=== PATIENT | female | born 1940 | race Caucasian/White ===

== ENCOUNTER 2016-09-09 05:35 | Outpatient (CLI) | payer MEDICARE ==
[~2016-09-09] VITALS: Ht 152.4 cm; Wt 58.1 kg
[~2016-09-09 05:35] MED LIST: ALLERGY SHOTS; AMIT25TA9 PO; AMIT50TA3 PO; ASP81CT PO; ASPI-875 PO; CHOL100011 PO; DOCU100T7 PO; FENO145T2 PO; FOLI-74 PO; HCT25T PO; LEVO125T6 PO; LOSA1TAB20 PO; MECL25TA56 PO; MULT-166 PO; OMEP20CA6 PO; ONDA4TAB11 PO; SLOW-MAG64 M1 PO; TRM50T PO
[2016-09-09] MEDS ORDERED: CHOL200059 PO (13:34)
[2016-09-09] MEDS ORDERED: FENO134C PO (13:34)
[2016-09-09] MEDS ORDERED: LEVO150T6 PO (13:34)
[2016-09-09] MEDS ORDERED: FEXO180T84 PO (13:35)
== END 2016-09-09 13:37 ==
LOC: PREOP 05:35
PROVIDERS: ATTEND Internal Medicine
DX: Z01.818 Encounter for other preprocedural examination (principal); Z12.11 Encounter for screening for malignant neoplasm of colon

== ENCOUNTER 2016-09-11 07:16 | Day surgery (SDC) | payer MEDICARE ==
[~2016-09-11] VITALS: Ht 152.4 cm; Wt 58.1 kg
[~2016-09-11 07:16] MED LIST changes: +CHOL200059 PO; +FENO134C PO; +FEXO180T84 PO; +LEVO150T6 PO
[2016-09-11] MEDS ORDERED: 1/2 NS IV SOLUTION 1,000 ML IV STA (07:26)
[2016-09-11] MEDS ORDERED: NALOXONE 0.4 MG/ML 1 ML (NARCAN) VIAL IVP PRN (07:30)
[2016-09-11] MEDS ORDERED: FLUMAZENIL (ROMAZICON) 0.1 MG/ML 5 ML VIAL INJ PRN (07:30)
[2016-09-11] MEDS ORDERED: LIDOCAINE JELLY 2% (XYLOCAINE) 5 ML TUBE TOP ONE (07:45)
[2016-09-11 07:56] VITALS: BP 139/62
--- NOTE | 2016-09-11 08:05 | Pre-Op Note & Conscious Sedat ---
Pre-Operative Progress Note H&P Reviewed The H&P was reviewed, patient examined and no changes noted. Date H&P Reviewed: Sep 11, 2016 Time H&P Reviewed: 08:05 Conscious Sedation Pre-Proced ASA Class: 2 Airway Mallampati Classification: ([place] appropriate class) I. II. III, IV Lungs Heart ASA score ASA 1: a normal healthy patient ASA 2: a patient with a mild systemic disease (mid diabetes, controlled hypertension, obesity ASA 3: a patient with a severe systemic disease that limits activity (angina , COPD, prior Myocardial infarction) ASA 4: a patient with an incapacitating disease that is a constant threat to life (CHF, renal failure) ASA 5: a moribund patient not expected to survive 24 hrs. (ruptured aneurysm) ASA 6: a declared brain patient whose organs are being harvested. For emergent operations, add the letter E after the classification Grade 2 Sedation Plan: Analgesia, Amnesia, Plan communicated to team members, Discussed options with patient/fam, Discussed risks with patient/fam Note The patient is an appropriate candidate to undergo the planned procedure, sedation, and anesthesia. The patient immediately re-assessed prior to indication. KAM GARCIA MD Sep 11, 2016 08:05
[2016-09-11] MEDS ORDERED: MIDAZOLAM 2 MG/2 ML (VERSED) VIAL ONE ×3 (08:17→08:18)
[2016-09-11] MEDS ORDERED: LIDOCAINE JELLY 2% (XYLOCAINE) 5 ML TUBE ONE (08:17)
[2016-09-11] MEDS ORDERED: fentaNYL INJECTION 100 MCG/2 ML AMP ONE ×2 (08:17→09:24)
[2016-09-11] MEDS: fentaNYL INJECTION 100 MCG/2 ML AMP IVP PRN ×3 (09:10→09:20)
[2016-09-11] MEDS: MIDAZOLAM 2 MG/2 ML (VERSED) VIAL IVP PRN ×2 (09:12→09:15)
[2016-09-11 10:00] VITALS: BP 106/62
[2016-09-11 10:30] VITALS: BP 111/63
[2016-09-11 10:40] VITALS: BP 111/63
--- NOTE | 2016-09-14 08:44 | OPERATIVE REPORT ---
PROCEDURE PHYSICIAN: KAM GARCIA DATE OF PROCEDURE: 09/11/2016 PROCEDURE: The patient was placed in left lateral decubitus position. Prior to undergoing colonoscopy, digital rectal evaluation was performed. Anal sphincter tone was normal and the perianal reflex was intact. No abnormalities were noted to digital inspection of the anal canal or distal rectal vault. The colonoscope was inserted in the rectum and under direct visualization, advanced to the cecum. The cecum was identified by identification of the ileocecal valve and cecal strap. Photographic documentation was obtained. Careful inspection was made as the colonoscope was withdrawn. FINDINGS: There was no evidence for internal or external hemorrhoids and the rectum was unremarkable. The sigmoid colon revealed several small to medium sized diverticulum without evidence for diverticulitis. No other sigmoid colonic abnormalities were appreciated. The descending colon, splenic flexure, transverse colon and hepatic flexure were unremarkable. There was a small focal colonic ulceration, shallow and benign in appearance, measuring about 6 x 7 mm in size. It was whitish coloration with some surrounding erythema. A biopsy was obtained and submitted for histopathology. The remainder of the ascending colon and cecum were unremarkable. The ileocecal valve was unremarkable as well. ASSESSMENT: One benign appearing focal colonic ulceration was noted in the distal ascending colon. It was biopsied and submitted for histopathology. The patient was getting a diarrheal type illness with a lot of abdominal cramping for the most part which had resolved. As long as the histopathology unremarkable, we will not be recommending future screening colonoscopy considering the patient's age. Job ID: [id number] Dictated Date: 09/11/2016 16:44:09 Carboy Filler Date: 09/14/2016 08:39:46 / esther
--- NOTE | 2016-09-16 09:02 | HISTORY AND PHYSICAL ---
DICTATING PHYSICIAN: Dr. Camacho DATE OF ADMISSION: 09/11/2016 INDICATION FOR THE PROCEDURE: Screening colon. Shelbi was seen in the office on 08/17 for follow-up of diabetes. She reports that she had been doing well but 5 days prior on Wednesday night she developed severe abdominal pain with bloating and gas. She states it followed eating a handful of peanuts. This is not, however, unusual for her and she does not have a known nut allergy. She felt bloated. She did pass some gas. Her bowels did not move until Wednesday and this was only after she took some stimulant laxative and MiraLAX. She had poor appetite without, chills or fever and felt fatigued. She was beginning to get her appetite back. Review of her office notes she was due for a screening colonoscopy anyway. She had undergone colonoscopy in 2004. There is a family history for colon cancer in her grandmother. In 2004 she had a lot of haustral hypertrophy and spasm felt to be possibly obscuring some sigmoid diverticulum. No polyps were identified on that colonoscopy and there was not overt evidence for acute diverticulitis. No other significant abnormalities were noted at that time. Shlebi has had no past abdominal surgery. PAST MEDICAL HISTORY: 1. Significant for hypertension. 2. Type 2 diabetes mellitus that have been under good control. Her last A1c was in June and was 6.7 with a fasting sugar of 129. SOCIAL HISTORY: She is retired with no past smoking or drinking history. PHYSICAL EXAMINATION: Revealed one anxious appearing white female otherwise in no acute distress. VITAL SIGNS: Weight 127 pounds is stable. Blood pressure 138/64. HEENT EXAMINATION: Unremarkable. There is no evidence for pallor or scleral icterus. NECK: Revealed no JVD, adenopathy or bruits. She is in a Mallampati class II oropharyngeal configuration. CHEST: Clear. CV: Revealed a regular rate and rhythm without murmur, S3 or S4. She has some generalized abdominal discomfort without rebound or guarding. No evidence for distention was noted. Bowel sounds were present. No mass or organomegaly was noted. EXTREMITIES: Reveal no cyanosis, clubbing, or edema. ASSESSMENT: Possible gastroenteritis. The patient is set-up for overdue screening colonoscopy on the . A CMP and a CBC were sent off and she is scheduled to return in 4 months with a BMP and an A1c. Prep instructions with split dose Colyte were given and questions were answered. I discussed the fact that a nut allergy was highly unlikely as she commonly eats all forms of nuts without any usual symptoms to suggest food allergy. Job ID: [id number] Dictated Date: 08/17/2016 16:18:00 Client Consultant Date: 08/18/2016 09:30:59/merritt
--- OUTSIDE RECORDS SUMMARY | 2016-10-04 07:47 | XMS REPORT | Continuity of Care Document ---
Author Author [facility] Organization [facility] Address Unknown Phone Unavailable Allergies Active Description Code Type Severity Reaction Onset Reported/Identified Relationship to Patient Clinical Status Yes codeine [id number] Drug Allergy Unknown N/A 12/21/2013 Medications Problems Date Dx Coded Attending Type Code Diagnosis Diagnosed By 08/22/2010 Ot 386.30 08/22/2010 Ot 780.4 01/05/2012 Ot 276.51 DEHYDRATION 01/05/2012 Ot 787.01 NAUSEA WITH VOMITING 01/05/2012 Ot 787.91 DIARRHEA 11/24/2012 ALYSE MATTHEW, TONY Nielsen Ot 706.2 SEBACEOUS CYST 11/24/2012 ALYSE MATTHEW, TONY Nielsen Ot V58.69 OT MED,LT,CURRENT USE 08/19/2013 GABRIELA MATTHEW, IRVIN English Ot 787.01 NAUSEA WITH VOMITING 08/19/2013 IRVIN OCHOA MD Ot 787.91 DIARRHEA 04/04/2015 RADHA MATTHEW, KAM English Ot Z12.31 04/04/2015 RADHA MATTHEW, KAM English Ot Z12.31 04/24/2015 KAM GARCIA MD Ot Z12.31 05/15/2015 Ot 787.02 05/15/2015 Ot 789.01 05/15/2015 Ot 553.3 05/15/2015 Ot 787.02 05/15/2015 Ot 787.20 05/15/2015 Ot 789.01 05/15/2015 ALYSE MATTHEW, TONY Nielsen Ot 709.9 05/15/2015 ALYSE MATTHEW, TONY Nielsen Ot V72.63 05/15/2015 ALYSE MATTHEW, TONY Nielsen Ot V74.8 05/15/2015 KAM GARCIA MD Ot V76.12 05/15/2015 RADHA MATTHEW, KAM English Ot V76.12 05/15/2015 KAM GARCIA MD Ot Z12.31 07/15/2015 KAM GARCIA MD Ot M54.16 07/15/2015 RADHA MATTHEW, KAM English Ot M77.11 08/15/2015 RADHA MATTHEW, KAM English Ot M54.16 RADICULOPATHY, LUMBAR REGION 08/15/2015 RADHA MATTHEW, KAM English Ot M77.11 LATERAL EPICONDYLITIS, RIGHT ELBOW 10/16/2015 RADHA MATTHEW, KAM English Ot M54.16 RADICULOPATHY, LUMBAR REGION 10/16/2015 RADHA MATTHEW, KAM English Ot M77.11 LATERAL EPICONDYLITIS, RIGHT ELBOW 03/05/2016 Ot 787.02 NAUSEA ALONE 03/05/2016 Ot 789.01 ABDOMINAL PAIN, RIGHT UPPER QUADRANT 03/05/2016 Ot 553.3 DIAPHRAGMATIC HERNIA 03/05/2016 Ot 787.02 NAUSEA ALONE 03/05/2016 Ot 787.20 DYSPHAGIA, UNSPECIFIED 03/05/2016 Ot 789.01 ABDOMINAL PAIN, RIGHT UPPER QUADRANT 03/05/2016 ALYSE MATTHEW, TONY Nielsen Ot 709.9 SKIN DISORDER NOS 03/05/2016 ALYSE MATTHEW, TONY Nielsen Ot V72.63 PRE-PROCEDURAL LABORATORY EXAMINATION 03/05/2016 ALYSE MATTHEW, TONY Nielsen Ot V74.8 SCREEN-BACTERIAL DIS NEC 03/05/2016 RADHA MATTHEW, KAM English Ot V76.12 OTH SCREEN MAMMO-MALIGN NEOPLASM OF TIFFANY 03/05/2016 RADHA MATTHEW, KAM English Ot V76.12 OTH SCREEN MAMMO-MALIGN NEOPLASM OF TIFFANY 03/05/2016 RADHA MATTHEW, KAM English Ot Z12.31 ENCNTR SCREEN MAMMOGRAM FOR MALIGNANT NE 03/06/2016 RADHA MATTHEW, KAM English Ot R05 COUGH 03/06/2016 RADHA MATTHEW, KAM English Ot R49.0 DYSPHONIA 03/10/2016 RADHA MATTHEW, KAM English Ot R05 COUGH 03/10/2016 RADHA MATTHEW, KAM English Ot R49.0 DYSPHONIA 03/11/2016 RADHA MATTHEW, KAM English Ot R05 COUGH 03/11/2016 RADHA MATTHEW, KAM English Ot R49.0 DYSPHONIA 03/26/2016 RADHA MATTHEW, KAM English Ot R05 COUGH 03/26/2016 RADHA MATTHEW, KAM English Ot R49.0 DYSPHONIA 04/02/2016 RADHA MATTHEW, KAM English Ot R05 COUGH 04/02/2016 RADHA MATTHEW, KAM English Ot R49.0 DYSPHONIA 04/16/2016 Ot 787.02 NAUSEA ALONE 04/16/2016 Ot 789.01 ABDOMINAL PAIN, RIGHT UPPER QUADRANT 04/16/2016 Ot 553.3 DIAPHRAGMATIC HERNIA 04/16/2016 Ot 787.02 NAUSEA ALONE 04/16/2016 Ot 787.20 DYSPHAGIA, UNSPECIFIED 04/16/2016 Ot 789.01 ABDOMINAL PAIN, RIGHT UPPER QUADRANT 04/16/2016 ALYSE MATTHEW, TONY Nielsen Ot 709.9 SKIN DISORDER NOS 04/16/2016 ALYSE MATTHEW, TONY Nielsen Ot V72.63 PRE-PROCEDURAL LABORATORY EXAMINATION 04/16/2016 ALYSE MATTHEW, TONY Nielsen Ot V74.8 SCREEN-BACTERIAL DIS NEC 04/16/2016 RADHA MATTHEW, KAM English Ot V76.12 OTH SCREEN MAMMO-MALIGN NEOPLASM OF [place]FF[place] 04/16/2016 KAM GARCIA MD Ot V76.12 OTH SCREEN MAMMO-MALIGN NEOPLASM OF TIFFANY 04/16/2016 KAM GARCIA MD Ot Z12.31 ENCNTR SCREEN MAMMOGRAM FOR MALIGNANT NE 04/16/2016 KAM GARCIA MD Ot R05 COUGH 04/16/2016 KAM GARCIA MD Ot R49.0 DYSPHONIA 04/16/2016 KAM GARCIA MD Ot Z12.31 ENCNTR SCREEN MAMMOGRAM FOR MALIGNANT NE 04/17/2016 KAM GARCIA MD Ot Z12.31 ENCNTR SCREEN MAMMOGRAM FOR MALIGNANT NE 04/27/2016 KAM GARCIA MD Ot Z12.31 ENCNTR SCREEN MAMMOGRAM FOR MALIGNANT NE 09/09/2016 KAM GARCIA MD Ot Z01.818 ENCOUNTER FOR OTHER PREPROCEDURAL EXAMIN 09/09/2016 KAM GARCIA MD Ot Z12.11 ENCOUNTER FOR SCREENING FOR MALIGNANT NE 09/11/2016 KAM GARCIA MD Ot K57.30 DVRTCLOS OF LG INT W/O PERFORATION OR AB 09/11/2016 KAM GARCIA MD Ot K63.3 ULCER OF INTESTINE 09/11/2016 KAM GARCIA MD Ot Z12.11 ENCOUNTER FOR SCREENING FOR MALIGNANT NE 09/15/2016 KAM GARCIA MD Ot K57.30 DVRTCLOS OF LG INT W/O PERFORATION OR AB 09/15/2016 KAM GARCIA MD Ot K63.3 ULCER OF INTESTINE 09/15/2016 KAM GARCIA MD Ot Z12.11 ENCOUNTER FOR SCREENING FOR MALIGNANT NE Procedures Results Encounters ACCT No. Visit Date/Time Discharge Status Pt. Type Provider Facility Loc./Unit Complaint [id number] 09/11/2016 07:16:00 2016 10:40:00 DIS Outpatient KAM GARCIA MD [facility] ENDO SCREENING [id number] 09/09/2016 05:35:00 2016 13:37:00 DIS Outpatient KAM GARCIA MD [facility] PREOP SCREENING [id number] 08/02/2015 13:45:00 2015 00:01:00 DIS Outpatient KAM GARCIA MD [facility] REHAB L LUMBAR RADICULOPATHY;R ELBOW EPICONDYLITIS [id number] 04/02/2015 10:05:00 2014 23:59:59 CLS Outpatient KAM GARCIA MD [facility] RAD SCREENING [id number] 02/19/2014 10:29:00 2013 23:59:59 CLS Outpatient KAM GARCIA MD [facility] RAD ROUTINE [id number] 08/19/2013 12:51:00 2013 15:46:00 DIS Emergency IRVIN OCHOA MD [facility] ER DEHYDRATION VOMITING [id number] 01/23/2013 08:57:00 2012 23:59:59 CLS Outpatient KAM GARCIA MD [facility] RAD ROUTINE [id number] 11/24/2012 06:40:00 2012 13:00:00 DIS Outpatient TONY CULLEN MD [facility] SDC SKIN LESION [id number] 11/17/2012 08:27:00 2012 23:59:59 CLS Outpatient TONY CULLEN MD [facility] PREOP SKIN LESION [id number] 04/16/2016 10:49:00 ACT Outpatient KAM GARCIA MD [facility] RAD SCREENING [id number] 03/05/2016 09:56:00 ACT Outpatient KAM GARCIA MD [facility] RAD CHRONIC COUGH [id number] 08/16/2015 00:08:00 PEN Preadmit KAM GARCIA MD [facility] REHAB [id number] 01/05/2012 18:57:00 Document Registration [id number] 07/14/2011 06:04:00 Document Registration [id number] 07/13/2011 07:58:00 Document Registration [id number] 08/22/2010 16:52:00 Document Registration
== END 2016-09-11 10:40 | disposition home or self-care (01) ==
LOC: DELPENDDIS → ENDO 07:16
PROVIDERS: ATTEND Internal Medicine
DX: Z12.11 Encounter for screening for malignant neoplasm of colon (principal); K63.3 Ulcer of intestine; K57.30 Diverticulosis of large intestine without perforation or abscess without bleeding
CPT/HCPCS: 88305

== ENCOUNTER → 2017-06-01 | Outpatient (CLI) | payer MEDICARE ==
--- NOTE | 2017-06-01 17:22 | Diagnostic Imaging Report ---
Bilateral screening mammogram 2D views with tomosynthesis The current study was also evaluated with a Computer Aided Detection (CAD) system. Indication: Screening. No current complaints stated on the questionnaire. COMPARISON: 04/16/2016 Findings: The breasts are composed of suggested dense parenchyma which may decrease mammographic sensitivity. Scattered benign-appearing calcifications are seen. Allowing for technique and positional differences, no suspicious change is seen. IMPRESSION: Dense breasts with no definite change. ACR BI-RADS Category 2: Benign findings. Result letter will be mailed to the patient. Note: At least 10% of breast cancer is not imaged by mammography. Dictated by: Dictated on workstation # [id number]
== END ==
LOC: RAD 13:16
PROVIDERS: ATTEND Internal Medicine
DX: Z12.31 Encounter for screening mammogram for malignant neoplasm of breast (principal)
CPT/HCPCS: 77067

== ENCOUNTER → 2017-06-03 | Outpatient (CLI) | payer MEDICARE ==
[2017-06-04 03:03] LABS: IGE DETAIL 72.5 IU/mL
[2017-06-04 06:36] LABS: INT IGE See Footnote
[2017-06-04 06:39] LABS: DUST MITE CL CLASS 3; DUST MITE RAST 5.55 H kU/L (<0.35)
[2017-06-04 06:40] LABS: ELM TREE <0.35 kU/L (<0.35); ELM TREE CL CLASS 0; KENT BLUE CL CLASS 0; KENTUCKY BLUE GRASS RAST <0.35 kU/L (<0.35); OAK TREE <0.35 kU/L (<0.35); OAK TREE CL CLASS 0; PECAN TR CL CLASS 0
[2017-06-04 06:41] LABS: ALT TEN CL CLASS 0; BERMUDA CL CLASS 0; BERMUDA GRASS RAST <0.35 kU/L (<0.35); CAT DANDER CL CLASS 0; CAT DANDER RAST <0.35 kU/L (<0.35); CLADOSPORIUM CL CLASS 0; CLADOSPORIUM MOLD RAST <0.35 kU/L (<0.35); DOG DANDER CL CLASS 0; DOG DANDER RAST <0.35 kU/L (<0.35); JOHNSON GR CL CLASS 0; JOHNSON GRASS RAST <0.35 kU/L (<0.35); MARSH ELDER RAST <0.35 kU/L (<0.35); RAGWEED CL CLASS 0; RAGWEED RAST <0.35 kU/L (<0.35); ROUGH MARSH CL CLASS 0
[2017-06-04 06:42] LABS: ALLERGEN INTERP SEE FOOTNOTE
== END ==
LOC: LAB 11:34
PROVIDERS: ATTEND Nurse Practitioner Family
DX: R05 Cough (principal); R06.00 Dyspnea, unspecified
CPT/HCPCS: 36415; 82785; 86003

== ENCOUNTER → 2017-06-18 | Outpatient (CLI) | payer MEDICARE ==
--- NOTE | 2017-06-18 13:16 | Diagnostic Imaging Report ---
PROCEDURE: CT chest without contrast. TECHNIQUE: Multiple contiguous axial images were obtained through the chest without the use of intravenous contrast. INDICATION: Chronic cough. FINDINGS: The lungs are well aerated. There are no infiltrates present. No masses are demonstrated. No interstitial lung disease is demonstrated. No bronchiectasis or bullous emphysematous changes are present. The aorta is atherosclerotic without evidence of aneurysm. There is no mediastinal or hilar adenopathy of pathologic size. No pleural effusions or pericardial effusions. There is coronary artery calcification. Bone windows show no blastic or lytic lesions. IMPRESSION: 1. Lungs are clear without evidence of emphysematous changes. 2. Rather dense coronary artery calcification. Dictated by: Dictated on workstation # [id number]
== END ==
LOC: RAD 12:49
PROVIDERS: ATTEND Nurse Practitioner Family
DX: I25.10 Atherosclerotic heart disease of native coronary artery without angina pectoris (principal); J30.2 Other seasonal allergic rhinitis; R05 Cough; R06.00 Dyspnea, unspecified
CPT/HCPCS: 71250

== ENCOUNTER → 2018-06-16 | Outpatient (CLI) | payer MEDICARE, OTHER ==
--- NOTE | 2018-06-16 09:24 | Diagnostic Imaging Report ---
INDICATION: Screening for osteoporosis COMPARISON: None FINDINGS: AP Spine L1-L4: [BMD (g/cm2): 1.135] [T-Score: -0.5] [Z-Score: 1.5] [BMD Previous: na] [BMD % Change: na] LT Hip Neck: [BMD (g/cm2): .924] [T-Score: -0.8] [Z-Score: 1.4] LT Hip Total: [BMD (g/cm2):1.007] [T-Score:0.0] [Z-Score: 2.1] [BMD Previous: na] [BMD % Change: na] RT Hip Neck: [BMD (g/cm2):0.905] [T-Score:-1.0] [Z-Score:1.3] RT Hip Total: [BMD (g/cm2):1.019] [T-score:0.1] [Z-Score:2.2] [BMD Previous:na] [BMD % Change:na] *Indicates significant change from prior examination based on 95% confidence level. World Health Organization criteria for BMD interpretation classify patients as Normal (T-score at or above -1.0), Osteopenic (T-score between -1.0 and -2.5) or Osteoporotic (T-score at or below -2.5). LIMITATIONS AND MODIFICATION: None. FRACTURE RISK (FRAX SCORE): The ten year probability of (%): Major Osteoporotic Fracture: [ ] Hip Fracture: [ ] IMPRESSION: 1. The bone mineral density of the hips and spine is within normal limits. 2. Clinical followup is recommended. 3. See below National Osteoporosis Foundation guidelines on when to potentially initiate pharmacologic therapy. Based on the National Osteoporosis Foundation Guidelines, pharmacologic treatment should be initiated in any of the following, unless clinical conditions suggest otherwise: * Any patient with prior fragility fracture of the hip or vertebrae. A spine fracture indicates 5X risk for subsequent spine fracture and 2X risk for subsequent hip fracture. * Osteoporosis (T-score <-2.5). * Postmenopausal women and men age 50 and older with low bone mass/osteopenia (T-score between -1.0 and -2.5) by DXA and 10-year major osteoporotic fracture greater than 20% or a 10-year probability of hip fracture greater than 3%. These fracture risks are supplied above in the FRAX score, if applicable. * Clinician judgement and/or patient preferences may indicate treatment for people with 10-year fracture probabilities above or below these levels. Dictated by: Dictated on workstation # [id number]
== END ==
LOC: RAD 08:04
PROVIDERS: ATTEND Nurse Practitioner
DX: Z13.820 Encounter for screening for osteoporosis (principal); Z78.0 Asymptomatic menopausal state
CPT/HCPCS: 77080

== ENCOUNTER → 2018-06-29 | Outpatient (CLI) | payer MEDICARE, OTHER ==
--- NOTE | 2018-06-29 19:14 | Diagnostic Imaging Report ---
INDICATION: Routine screening. Comparison is made with prior mammogram from 06/01/2017 and 04/16/2016. 2-D and 3-D bilateral screening mammography was performed with a Computer Aided Detection (CAD) system. FINDINGS: Both breasts are heterogeneously dense, limiting the sensitivity of mammography. The parenchymal pattern is stable. No mass or malignant appearing microcalcifications are seen. The axillae are unremarkable. IMPRESSION: No mammographic features suspicious for malignancy are identified. ACR BI-RADS Category 1: Negative. Result letter will be mailed to the patient. Note: At least 10% of breast cancer is not imaged by mammography. Dictated by: Dictated on workstation # [id number]
== END ==
LOC: RAD 14:45
PROVIDERS: ATTEND Internal Medicine
DX: Z12.31 Encounter for screening mammogram for malignant neoplasm of breast (principal)
CPT/HCPCS: 77067

== ENCOUNTER → 2019-07-10 | Outpatient (CLI) | payer MEDICARE, OTHER ==
--- NOTE | 2019-07-11 12:30 | Diagnostic Imaging Report ---
INDICATION: Routine screening. COMPARISON: Comparison is made with prior mammograms from 06/29/2018 and 06/01/2017. 2-D and 3-D bilateral screening mammography was performed. The current study was also evaluated with a Computer Aided Detection (CAD) system. 3-D tomosynthesis was also performed and reviewed. FINDINGS: Both breasts remain heterogeneously dense, limiting the sensitivity of mammography. There are benign calcifications bilaterally. No mass or malignant-appearing microcalcifications are seen. Axillae are unremarkable. IMPRESSION: No mammographic features suspicious for malignancy are identified. ACR BI-RADS Category 2: Benign findings. Result letter will be mailed to the patient. Note: At least 10% of breast cancer is not imaged by mammography. Dictated by: Dictated on workstation # [id number]
== END ==
LOC: RAD 14:38
PROVIDERS: ATTEND Internal Medicine
DX: Z12.31 Encounter for screening mammogram for malignant neoplasm of breast (principal)
CPT/HCPCS: 77067

== ENCOUNTER → 2020-07-11 | Outpatient (CLI) | payer MEDICARE, OTHER ==
--- NOTE | 2020-07-11 14:27 | Diagnostic Imaging Report ---
INDICATION: Routine screening. Comparison is made to prior mammogram 07/10/2019 and 06/29/2018. 2-D and 3-D bilateral screening mammography was performed with CAD. Both breasts are heterogeneously dense, limiting the sensitivity of mammography. There are benign calcifications. No mass or malignant appearing microcalcifications are seen. Axillae are unremarkable. IMPRESSION: BI-RADS Category 2 No mammographic features suspicious for malignancy are identified. ACR BI-RADS Category 2: Benign findings. Result letter will be mailed to the patient. Note: At least 10% of breast cancer is not imaged by mammography. Dictated by: Dictated on workstation # [id number]
== END ==
LOC: RAD 10:18
PROVIDERS: ATTEND Internal Medicine
DX: Z12.31 Encounter for screening mammogram for malignant neoplasm of breast (principal)
CPT/HCPCS: 77063; 77067

== ENCOUNTER → 2020-12-10 | Outpatient (CLI) | payer MEDICARE, OTHER ==
--- NOTE | 2020-12-10 16:23 | Diagnostic Imaging Report ---
INDICATION: Postmenopausal state/ COMPARISON: 06/16/2018 FINDINGS: AP Spine L1-L4: [BMD (g/cm2): 1.029] [T-Score: -1.4] [Z-Score: 0.7] [BMD Previous: 1.135] [BMD % Change: -9.3] LT Hip Neck: [BMD (g/cm2): 0.897] [T-Score: -1.0] [Z-Score: 1.3] LT Hip Total: [BMD (g/cm2):1.026] [T-Score:0.1] [Z-Score: 2.4] [BMD Previous: 1.007] [BMD % Change: 1.9] RT Hip Neck: [BMD (g/cm2):0.880] [T-Score:-1.1] [Z-Score:1.2] RT Hip Total: [BMD (g/cm2):0.994] [T-score:-0.1] [Z-Score:2.0] [BMD Previous:1.019] [BMD % Change:-2.5] *Indicates significant change from prior examination based on 95% confidence level. World Health Organization criteria for BMD interpretation classify patients as Normal (T-score at or above -1.0), Osteopenic (T-score between -1.0 and -2.5) or Osteoporotic (T-score at or below -2.5). LIMITATIONS AND MODIFICATION: None. FRACTURE RISK (FRAX SCORE): The ten year probability of (%): Major Osteoporotic Fracture: [12.1] Hip Fracture: [2.5] IMPRESSION: 1. Osteopenia (Low bone mass). 2. No significant change in bone mineral density since prior examination. 3. See below National Osteoporosis Foundation guidelines on when to potentially initiate pharmacologic therapy. Based on the National Osteoporosis Foundation Guidelines, pharmacologic treatment should be initiated in any of the following, unless clinical conditions suggest otherwise: * Any patient with prior fragility fracture of the hip or vertebrae. A spine fracture indicates 5X risk for subsequent spine fracture and 2X risk for subsequent hip fracture. * Osteoporosis (T-score <-2.5). * Postmenopausal women and men age 50 and older with low bone mass/osteopenia (T-score between -1.0 and -2.5) by DXA and 10-year major osteoporotic fracture greater than 20% or a 10-year probability of hip fracture greater than 3%. These fracture risks are supplied above in the FRAX score, if applicable. * Clinician judgement and/or patient preferences may indicate treatment for people with 10-year fracture probabilities above or below these levels. Dictated by: Dictated on workstation # [id number]
== END ==
LOC: RAD 11:00
PROVIDERS: ATTEND Nurse Practitioner
DX: M85.88 Other specified disorders of bone density and structure, other site (principal); Z78.0 Asymptomatic menopausal state
CPT/HCPCS: 77080

== ENCOUNTER → 2021-02-04 | Outpatient (CLI) | payer MEDICARE, OTHER | LOC: LABNPT 06:30 | PROVIDERS: ATTEND Internal Medicine | DX: E11.59 Type 2 diabetes mellitus with other circulatory complications (principal); Z20.822 Contact with and (suspected) exposure to COVID-19 | CPT/HCPCS: 87636 ==

== ENCOUNTER 2021-02-06 06:27 | Outpatient (CLI) | payer MEDICARE, OTHER ==
[~2021-02-06] VITALS: Ht 152.4 cm; Wt 56.8 kg
== END 2021-02-06 11:51 ==
LOC: PREOP 06:27
PROVIDERS: ATTEND Internal Medicine
DX: Z01.818 Encounter for other preprocedural examination (principal)

== ENCOUNTER 2021-02-14 07:02 | Day surgery (SDC) | payer MEDICARE, OTHER ==
--- NOTE | 2021-02-06 06:04 | HISTORY AND PHYSICAL ---
DATE OF SERVICE: COLONOSCOPY HISTORY AND PHYSICAL DATE OF ADMISSION: 02/14/2021. HISTORY OF PRESENT ILLNESS: The patient is a very spry 80-year-old white female undergoing diagnostic colonoscopy due to positive Cologuard. She denies any bowel habit changes, noted no melena or bright red blood per rectum. There has been no change in weight and she denies abdominal pain. She is not aware of any family history for colon cancer. PAST MEDICAL HISTORY: Significant for type 2 diabetes mellitus that she controls with diet. Her last colonoscopy was 16 years ago with no evidence for neoplasia. PHYSICAL EXAMINATION: GENERAL: Reveals a white female, who appeared to be in no acute distress. HEENT: Unremarkable. Sclerae nonicteric. No evidence for pallor. CHEST: Clear. CARDIOVASCULAR: Regular rate and rhythm without murmur, S3 or S4. ABDOMEN: Soft, supple without mass or organomegaly. She has some mild right upper quadrant discomfort to palpation as well as right lower quadrant without rebound or guarding. No mass or organomegaly noted. No bruits noted. Bowel sounds positive. No evidence for distention. EXTREMITIES: Reveal no cyanosis, clubbing or edema. ASSESSMENT AND PLAN: Discussed the ramifications of a positive Cologuard with the patient and she is being set up for surveillance for diagnostic colonoscopy on 02/14/2021. Prep instructions with Morgan-tab were given and questions were answered. Job ID: [id number] DocumentID: [id number] Dictated Date: 01/29/2021 16:46:02 Inspector Elevators Date: 01/29/2021 17:11:37 Dictated By: KAM GARCIA MD
[~2021-02-14] VITALS: Ht 152.4 cm; Wt 56.8 kg
[2021-02-14] MEDS ORDERED: GLYCOPYRROLATE 0.2 MG/ML (ROBINUL) 2 ML VIAL IJ ONE (07:03)
[2021-02-14] MEDS ORDERED: LACTATED RINGERS 1,000 ML IV STA (07:14)
[2021-02-14] MEDS ORDERED: LIDOCAINE JELLY 2% 6 ML SYRINGE MM PRN (07:15)
[2021-02-14 07:28] VITALS: BP 157/60
[2021-02-14] MEDS ORDERED: PROPOFOL INJECTION 50 ML IV ONE (08:02)
--- NOTE | 2021-02-14 08:04 | Pre-Op Note & Conscious Sedat ---
Pre-Operative Progress Note H&P Reviewed The H&P was reviewed, patient examined and no changes noted. Date H&P Reviewed: Feb 14, 2021 Time H&P Reviewed: 07:45 Conscious Sedation Pre-Proced ASA Score 2 For ASA 3 and 4: Consider anesthesia and medical clearance. Also, for patients with a history of failed moderate sedation consider anesthesia. Airway Lungs Heart ASA score ASA 1: a normal healthy patient ASA 2: a patient with a mild systemic disease (mid diabetes, controlled hypertension, obesity ASA 3: a patient with a severe systemic disease that limits activity (angina, COPD, prior Myocardial infarction) ASA 4: a patient with an incapacitating disease that is a constant threat to life (CHF, renal failure) ASA 5: a moribund patient not expected to survive 24 hrs. (ruptured aneurysm) ASA 6: a declared brain- patient whose organs are being harvested. For emergent operations, add the letter E after the classification Mallampati Classification Grade 2 Sedation Plan Analgesia, Amnesia, Plan communicated to team members, Discussed options with patient/fam, Discussed risks with patient/fam The patient is an appropriate candidate to undergo the planned procedure, sedation, and anesthesia. The patient immediately re-assessed prior to indication. KAM GARCIA MD Feb 14, 2021 08:04
[2021-02-14 08:35] VITALS: BP 103/55
[2021-02-14 08:40] VITALS: BP 105/55
[2021-02-14 08:55] VITALS: BP 106/78
[2021-02-14 09:15] VITALS: BP 106/78
--- NOTE | 2021-02-14 10:14 | Anesthesia-General Post-Op ---
MAC Patient Condition Mental Status/LOC: Same as Preop Cardiovascular: Satisfactory Nausea/Vomiting: Absent Respiratory: Satisfactory Pain: Controlled Complications: Absent Post Op Complications Complications None Follow Up Care/Instructions Patient Instructions None needed. Anesthesiology Discharge Order Discharge Order Patient is doing well, no complaints, stable vital signs, no apparent adverse anesthesia problems. No complications reported per nursing. CHRISSY ABURTO CRNA Feb 14, 2021 10:14
--- NOTE | 2021-02-14 12:59 | OPERATIVE REPORT ---
DATE OF SERVICE: COLONOSCOPY SUMMARY INDICATION FOR THE PROCEDURE: Positive Cologuard. DESCRIPTION OF PROCEDURE: The patient was placed in the left lateral decubitus position. Prior to undergoing colonoscopy, digital rectal evaluation was performed. Anal sphincter tone was normal and the perianal reflexes intact. No abnormalities were noted on digital inspection of anal canal or distal rectal vault. The colonoscope was then inserted into the rectum and under direct visualization advanced to the cecum. The cecum was identified by identification of ileocecal valve, cecal strap and appendiceal orifice. Photographic documentation was obtained. Careful inspection was made as the colonoscope was withdrawn. Quality of prep was fair. FINDINGS: There was no evidence for internal or external hemorrhoids and the rectum, sigmoid colon, descending colon, transverse colon, ascending colon, and cecum were unremarkable to visual inspection under fair prep conditions. The patient, however, did cough throughout pretty much the entire procedure with history of chronic cough and likely recent viral URI, negative COVID and a fully vaccinated individual. This did somewhat decrease sensitivity of today's evaluation. We will keep this into consideration, likely recommending at least repeat iFOB testing early next year considering the patient's age and medical comorbidity. Job ID: [id number] DocumentID: [id number] Dictated Date: 02/14/2021 08:38:[address] Counsellor Date: 02/14/2021 12:59:10 Dictated By: KAM GARCIA MD
== END 2021-02-14 09:15 | disposition home or self-care (01) ==
LOC: ENDO 07:02
PROVIDERS: ATTEND Internal Medicine
DX: R19.5 Other fecal abnormalities (principal); E11.9 Type 2 diabetes mellitus without complications

== ENCOUNTER → 2021-03-12 | Outpatient (CLI) | payer MEDICARE, OTHER ==
--- NOTE | 2021-03-12 16:16 | Diagnostic Imaging Report ---
INDICATION: Sore throat and cough for 6 weeks. TIME OF EXAM: 3:11 PM. COMPARISON: Correlation is made with the prior chest of 03/05/2016. FINDINGS: The heart size is normal. The pulmonary vascularity is unremarkable. The lungs are clear. No infiltrate, effusion, or pneumothorax is detected. IMPRESSION: No acute cardiopulmonary process is detected. Dictated by: Dictated on workstation # [id number]
== END ==
LOC: RAD 14:18
PROVIDERS: ATTEND Nurse Practitioner Family
DX: J02.9 Acute pharyngitis, unspecified (principal); R05 Cough
CPT/HCPCS: 71046

== ENCOUNTER → 2021-07-30 | Outpatient (CLI) | payer MEDICARE, OTHER ==
--- NOTE | 2021-07-31 13:38 | Diagnostic Imaging Report ---
Digital mammogram INDICATION: Bilateral screening This study was compared to the prior exams of 07/03/2020, 07/10/2019 and 06/29/2018. At this time there are no current complaints. The current study was also evaluated with a Computer Aided Detection (CAD) system. FINDINGS: The fibroglandular tissue in both breasts is dense. This does limit the sensitivity of this exam. Overall, there does not appear to have been any significant change when compared to the prior study. No primary or secondary sign of malignancy is noted. IMPRESSION: There is no radiographic evidence for malignancy. ACR category 1 ACR BI-RADS Category 1: Negative. Result letter will be mailed to the patient. Note: At least 10% of breast cancer is not imaged by mammography. Dictated by: Dictated on workstation # [id number]
== END ==
LOC: RAD 15:00
PROVIDERS: ATTEND Internal Medicine
DX: Z12.31 Encounter for screening mammogram for malignant neoplasm of breast (principal)
CPT/HCPCS: 77063; 77067

== ENCOUNTER 2022-06-12 15:09 | Outpatient (RCR) | payer MEDICARE, OTHER ==
[~2022-06-12 15:09] MED LIST changes: -FENO134C PO; +FENO134C21 PO
== END 2022-06-13 | disposition home or self-care (01) ==
PROVIDERS: ATTEND Nurse Practitioner Family
DX: M54.2 Cervicalgia (principal); I10 Essential (primary) hypertension; E11.9 Type 2 diabetes mellitus without complications

== ENCOUNTER → 2022-07-14 | Outpatient (RCR) | payer MEDICARE, OTHER | END | disposition home or self-care (01) | PROVIDERS: ATTEND Nurse Practitioner Family | DX: M54.2 Cervicalgia (principal); I10 Essential (primary) hypertension; E11.9 Type 2 diabetes mellitus without complications ==

== ENCOUNTER → 2022-08-11 | Outpatient (RCR) | payer MEDICARE, OTHER | END | disposition home or self-care (01) | PROVIDERS: ATTEND Nurse Practitioner Family | DX: M54.2 Cervicalgia (principal); E11.9 Type 2 diabetes mellitus without complications; I10 Essential (primary) hypertension ==

== ENCOUNTER → 2022-08-11 | Outpatient (CLI) | payer MEDICARE, OTHER ==
--- NOTE | 2022-08-11 15:46 | Diagnostic Imaging Report ---
INDICATION: Routine screening. Comparison is made prior mammogram from 07/30/2021 and 07/11/2020. 2-D and 3-D bilateral screening mammography was performed with CAD. Both breasts are heterogeneously dense, limiting the sensitivity of mammography. There are scattered benign calcifications. No mass or malignant-appearing microcalcifications are seen. Axillae are unremarkable. IMPRESSION: No mammographic features suspicious for malignancy are identified. ACR BI-RADS Category 2: Benign findings. Result letter will be mailed to the patient. Note: At least 10% of breast cancer is not imaged by mammography. BI-RADS Category 2 Dictated by: Dictated on workstation # [id number]
== END ==
LOC: RAD 12:24
PROVIDERS: ATTEND Internal Medicine
DX: Z12.31 Encounter for screening mammogram for malignant neoplasm of breast (principal)
CPT/HCPCS: 77063; 77067

== ENCOUNTER 2022-08-21 11:03 | Outpatient (RCR) | payer MEDICARE, OTHER | END 2022-08-21 12:12 | disposition home or self-care (01) | PROVIDERS: ATTEND Nurse Practitioner Family | DX: M54.2 Cervicalgia (principal); E11.9 Type 2 diabetes mellitus without complications; I10 Essential (primary) hypertension ==